=== PATIENT | female | born 1995 | race Caucasian/White ===

== ENCOUNTER → 2021-11-29 | Outpatient (CLI) | payer OTHER | LOC: CAT 07:49 | PROVIDERS: ATTEND Family Medicine | DX: C85.80 Other specified types of non-Hodgkin lymphoma, unspecified site (principal); R59.1 Generalized enlarged lymph nodes ==

== ENCOUNTER → 2021-12-05 | Outpatient (CLI) | payer OTHER ==
--- NOTE | 2021-12-10 19:07 | PATH ---
[facility] [address] [place] [address] PATHOLOGY RPT PROCEDURE Name: CATALINA PATEL Room #: REG BRIDGETTE Christianson.#: [id number] Admission: 12/05/21 Date of : 89 Discharge: Report #: [id number] Path Case #: [id number] [facility] Accession Number: [id number] . 01 Material submitted: . axillary tail of breast - RIGHT AXILLARY LYMPH NODE. Modifiers: right . 01 Clinician provided ICD-10: R59.9 . 01 Clinical history: . US/GUIDED BIOPSY HEMATOLYMPHOID NEOPLASIA ASSESSMENT (HNA) . 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 (SEE COMMENT). (FLORIN:pepito; 12/09/2021) [facility] 12/09/2021 1708 Local . 02 Comment: Sections show needle core biopsy fragments of abnormal lymph node. The majority of the specimen is fibrous connective tissue. Scattered aggregates of lymphoid cells are present. Within this aggregate, scattered large atypical cells with binucleate and multinucleate forms are noted. The atypical cells have variably conspicuous nucleoli. The background cells are composed of lymphocytes, histiocytes, plasma cells and eosinophils. A rare vague granuloma is present. . Properly controlled immunohistochemical stains are performed. . Block A2: CD30 - large atypical cells reactive; CD15 - large atypical cells focally reactive; MUM1 - large atypical cells reactive; PAX-5 - large atypical cells weakly reactive; CD3 - highlights admixed T-cells; CD20 - highlights admixed B-cells; ALK1 - nonreactive; AE1/AE3 - nonreactive. . Flow cytometric immunophenotypic analysis was performed at [facility]. No significant lymphoid immunophenotypic abnormalities are detected in a limited sample with decreased viability. Please see separate flow cytometry report from [facility] ([id number]). . [address] [address] PATHOLOGY RPT PROCEDURE Name: CATALINA PATEL Room #: REG BRIDGETTE Sammy.#: [id number] Admission: 12/05/21 Date of : [birth year] Discharge: Report #: [id number] Path Case #: [id number] Overall the diagnosis is a needle core biopsy of lymph node with involvement by classic Hodgkin lymphoma. It is likely nodular sclerosis subtype. Clinical and radiographic correlation is required. The case is co-reviewed with Dr. Nona Meyers who agrees on 12/10/2021. The case is discussed with Dr. Sukhdeep Spring on 12/10/2021 at 1620. . (CLW:marriage and family social worker; 12/09/2021) . 02 Electronically signed: . Britney Ndiaye MD, Pathologist NPI- [id number] . 01 Gross description: . The specimen is received in formalin, labeled "Catalina Patel, Rt axilla node" and consists of 6 sommer-casanova and focally hemorrhagic cylindrical needle core biopsies ranging in length from 0.3 cm to 0.7 cm and each averaging less than 0.1 cm in diameter. This portion of the specimen is submitted in toto in A1-A3. . Also received separately in an RPMI media filled container designated "Catalina Patel, Rt Axilla node" is a pale casanova to pink irregular tissue measuring approximately 0.6 x 0.4 x 0.1 cm. This portion of the specimen is given to send outs for additional testing. (NIGHTMUTE; 12/05/2021) DKA/DKA 12/10/2021 1841 Local . 02 Pathologist provided ICD-10: C81.94 . 02 CPT . 965841, [id number], [id number] Specimen Comment: A courtesy copy of this report has been sent to [phone] Specimen Comment: Report sent to Performed at: [address] [id number] MD Dany Riggs MD Phone: [phone] Performed at: [address] [id number] MD Britney Ndiaye MD Phone: [phone]
== END | disposition home or self-care (01) ==
LOC: ULTRA 08:35
PROVIDERS: ATTEND Family Medicine
DX: R59.0 Localized enlarged lymph nodes (principal); C81.94 Hodgkin lymphoma, unspecified, lymph nodes of axilla and upper limb

== ENCOUNTER → 2021-12-17 | Outpatient (CLI) | payer OTHER ==
[~2021-12-17] MED LIST: NORCO7.5 PO
== END ==
LOC: SJCVCIMAG 12:31 → SJCVC 12:31
PROVIDERS: ATTEND Internal Medicine Cardiovascular Disease
DX: Z01.818 Encounter for other preprocedural examination (principal); C81.12 Nodular sclerosis Hodgkin lymphoma, intrathoracic lymph nodes; Z13.6 Encounter for screening for cardiovascular disorders; Z13.220 Encounter for screening for lipoid disorders; Z91.040 Latex allergy status; Z88.1 Allergy status to other antibiotic agents; Z82.49 Family history of ischemic heart disease and other diseases of the circulatory system

== ENCOUNTER → 2021-12-23 | Outpatient (CLI) | payer OTHER ==
--- NOTE | ~2021-12-23 | PFR/MVV ---
[facility] [place] [address] PULMONARY FUNCTION MVV/REPORT Name: ILDEFONSO FLEMINGY [id number] Admission: 12/23/21 Attend Phys: Ilya Douglas MD Discharge: Date of : [birth year] Report #: [id number] THIS REPORT FOR: //name// >> SPIROMETRY: (BTPS) Height: in cm Weight: lbs kg Exam Date: PRE-RX POST-RX PRED BEST %PRED BEST %PRED %CHG FVC LITERS . . . . . . FEV1 LITERS . . . . . . FEV1/FVC % . . . . . . NWW75-42% L/Sec . . . . . . PEF L/SEC . . . . . . FEF50/FIF50 UNITLESS . . . . . . MVV L/Min . . . f 1/Min . . . >> LUNG VOLUMES: (BTPS) PRE-RX POST-RX PRED AVG %PRED AVG %PRED %CHG VC Liters . . . . . . TLC Liters . . . . . . RV Liters . . . . . . RV/TLC % . . . . . . FRC PL Liters . . . . . . FRC N2 Liters . . . . . . ERV Liters . . . . . . IC Liters . . . . . . >> DIFFUSION: DLCO ml/Min/mmHg . . . . . . DL Jacques ml/Min/mmHg . . . . . . DLCO/VA ml/Min/mmHg . . . . . . VA Liters . . . . . . COMMENTS: COMMENTS: >> RESISTANCE: [facility] [address] [place] [address] PULMONARY FUNCTION MVV/REPORT Name: ILDEFONSO FLEMINGY Room #: REG BRIDGETTE ChristiansonLisbet#: [id number] Admission: 12/23/21 Attend Phys: Ilya Douglas MD Discharge: Date of : 89 Report #: [id number] PRE-RX PRED AVG %PRED Raw Total cmH20/L/Sec . . . Raw Insp cmH20/L/Sec . . . Raw Exp cmH20/L/Sec . . . Raw cmH20/L/Sec . . . Gaw L/Sec/cmH20 . . . sRaw cmH20 Sec . . . sGaw l/cmH20 Sec . . . Vtq Liters . . . # = OUTSIDE 95% CONFIDENCE INTERVAL CALIBRATION: PRED: 3.00 ACTUAL: EXP 3.01 INSP 3.02 [facility]-OL10- [facility]-- [id number] >> INTERPRETATION/IMPRESSION: DATE OF SERVICE: 12/23/2021 PULMONARY FUNCTION TEST Forced vital capacity is normal. FEV1 is normal. FEV1/FVC ratio is normal. No significant change postbronchodilator. Lung volumes reveals a decreased residual volume, which may be related to body habitus. Diffusion capacity is normal. IMPRESSION: Essentially normal pulmonary function study. By: Ten Godinez MD /nt
== END ==
LOC: PUL 09:45
PROVIDERS: ATTEND Internal Medicine Hematology & Oncology
DX: C81.12 Nodular sclerosis Hodgkin lymphoma, intrathoracic lymph nodes (principal); Z20.822 Contact with and (suspected) exposure to COVID-19

== ENCOUNTER 2021-12-27 17:33 | Emergency (ER) | payer OTHER ==
[~2021-12-27] VITALS: Ht 170.2 cm; Wt 117.0 kg
[2021-12-27 18:17] LABS: ABSOLUTE NEUTROPHILS 7.4 thou/uL (1.4-8.2); BASOPHILS 0.5 % (0.0-2.0); EOSINOPHILS 0.4 % (0.0-3.0); HEMATOCRIT 35.4 % (37.0-47.0); HEMOGLOBIN 12.3 gm/dL (12.0-15.0); MCH 28.5 pg (26.0-34.0); MCHC 34.6 g/dL (28.0-37.0); MCV 82.5 fL (80.0-100.0); MONOCYTES 8.1 % (1.0-8.0); PLATELET COUNT 310 thou/uL (150-400); RDW 13.5 % (10.5-14.5); WBC 9.6 thou/uL (4.0-11.0)
[2021-12-27 18:21] LABS: CALCIUM 9.2 mg/dL (8.5-10.1); CREATININE 0.7 mg/dL (0.6-1.0); POTASSIUM 3.8 mmol/L (3.5-5.1)
[2021-12-27] MEDS ORDERED: NORCO7.5 PO (19:13)
[2021-12-27 19:18] VITALS: BP 125/86
== END 2021-12-27 19:37 | disposition home or self-care (01) ==
LOC: ER 17:33
PROVIDERS: Student in an Organized Health Care Education/Training Program
DX: M96.831 Postprocedural hemorrhage of a musculoskeletal structure following other procedure (principal); Z98.890 Other specified postprocedural states; Z88.1 Allergy status to other antibiotic agents; Z91.040 Latex allergy status

== ENCOUNTER → 2021-12-27 | Outpatient (CLI) | payer OTHER ==
[~2021-12-27] VITALS: Ht 170.2 cm; Wt 117.0 kg
[2021-12-27 09:29] LABS: HEMATOCRIT 38.2 % (37.0-47.0); HEMOGLOBIN 12.9 gm/dL (12.0-15.0); MCH 27.9 pg (26.0-34.0); MCHC 33.8 g/dL (28.0-37.0); MCV 82.4 fL (80.0-100.0); RBC 4.64 mil/uL (4.20-5.00); RDW 13.4 % (10.5-14.5); WBC 10.5 thou/uL (4.0-11.0)
[2021-12-27 09:40] LABS: CALCIUM 9.6 mg/dL (8.5-10.1); CREATININE 0.6 mg/dL (0.6-1.0); POTASSIUM 3.8 mmol/L (3.5-5.1)
[2021-12-27 09:47] LABS: APTT 29.1 Seconds (24.5-32.8); INR 0.99; PROTIME 10.8 Seconds (10.5-12.1)
[2021-12-27 11:17] VITALS: BP 126/67
--- NOTE | 2021-12-27 12:27 | NUR ---
This publicity writer noted that the pt kept grabbing at the right side of her neck and had reported that she felt some pressure when she swallowed. This publicity writer didn't note any swelling or evidence of hematoma, Clarita Hsieh Lead seismograph recorder also evaluated and agreed there was no evidence of hematoma. Dr. Olivera was informed of pt's symptoms and she came over to assess and speak with pt. Pt ok with providers instructions and education and felt comfortable with going home. This publicity writer informed pt to return to the ER if she felt the swelling was worsening or she was having trouble swallowing more than just pressure. Pt and friend verbalized understanding and ok with going home.
== END | disposition home or self-care (01) ==
LOC: LAB 08:34 → SPEC 08:34
PROVIDERS: Radiology Vascular & Interventional Radiology; ATTEND Internal Medicine Hematology & Oncology
DX: Z45.2 Encounter for adjustment and management of vascular access device (principal); C85.90 Non-Hodgkin lymphoma, unspecified, unspecified site; Z98.890 Other specified postprocedural states; Z88.0 Allergy status to penicillin; Z91.040 Latex allergy status